=== PATIENT | female | born 1950 | race Caucasian/White ===

== ENCOUNTER 2019-05-05 07:18 | Day surgery (SDC) | payer MEDICAID, MEDICARE ==
[~2019-05-05] VITALS: Ht 154.9 cm; Wt 71.7 kg
[~2019-05-05 07:18] MED LIST: HYDR25TAB PO; METO1TAB32 PO; NS 1,000 ML IV ONE; POTA1TAB23 PO
[2019-05-05] MEDS ORDERED: propofoL 200 MG/20 ML VIAL As Ordered ONE ×2 (07:52→09:04)
[2019-05-05] MEDS ORDERED: LIDOCAINE 2% INJ 100 MG/5 ML SDV (FOR ANES.) As Ordered ONE (08:40)
--- NOTE | 2019-05-05 09:13 | ROOR ---
Patient Name: Elise Peña Procedure Date: 05/05/2019 8:37 AM Date of : 1950 Age: 68 Room: [facility] Gender: Female Note Status: Finalized Procedure: Total Colonoscopy to Cecum + ileoscopy + Bx Indications: Screening for colorectal malignant neoplasm Providers: Steven Robles MD Referring MD: Trish Vazquez NP Requesting Provider: Medicines: Monitored Anesthesia Care Complications: No immediate complications. Procedure: Pre-Anesthesia Assessment: - The heart rate, respiratory rate, oxygen saturations, blood pressure, adequacy of pulmonary ventilation, and response to care were monitored throughout the procedure. The Colonoscope was introduced through the anus and advanced to the cecum, identified by appendiceal orifice and ileocecal valve. The colonoscopy was performed without difficulty. The patient tolerated the procedure well. The quality of the bowel preparation was excellent. Findings: The perianal and digital rectal examinations were normal. Non-bleeding internal hemorrhoids were found during retroflexion. The hemorrhoids were small and Grade I (internal hemorrhoids that do not prolapse). Multiple small and large-mouthed diverticula were found in the recto-sigmoid colon, sigmoid colon and descending colon. A diminutive polyp was found at 30 cm proximal to the anus. The polyp was sessile. The polyp was removed with a cold biopsy forceps. Resection and retrieval were complete. The terminal ileum appeared normal. The exam was otherwise without abnormality on direct and retroflexion views. Impression: - Non-bleeding internal hemorrhoids. - Diverticulosis in the recto-sigmoid colon, in the sigmoid colon and in the descending colon. - One diminutive polyp at 30 cm proximal to the anus, removed with a cold biopsy forceps. Resected and retrieved. - The examined portion of the ileum was normal. - The examination was otherwise normal on direct and retroflexion views. - The exam was otherwise normal to the cecum. Recommendation: - Patient has a contact number available for emergencies. The signs and symptoms of potential delayed complications were discussed with the patient. Return to normal activities tomorrow. Written discharge instructions were provided to the patient. - High fiber diet. - Discharge patient to home. - Continue present medications. - Await pathology results. - Telephone GI clinic for pathology results in 1 week. - Repeat colonoscopy in 10 years for screening purposes. - Return to referring physician. - The findings and recommendations were discussed with the patient's family. Steven Robles MD Steven Robles MD 05/05/2019 9:13:26 AM Electronically signed by Steven Robles MD Number of Addenda: 0 Note Initiated On: 05/05/2019 8:37 AM Estimated Blood Loss: Estimated blood loss: none.
[2019-05-05 09:44] VITALS: BP 160/93
== END 2019-05-05 09:46 | disposition home or self-care (01) ==
LOC: M OPP 07:18
PROVIDERS: ATTEND Internal Medicine Gastroenterology
DX: Z12.11 Encounter for screening for malignant neoplasm of colon (principal); K64.0 First degree hemorrhoids; K63.5 Polyp of colon; K57.30 Diverticulosis of large intestine without perforation or abscess without bleeding; K21.9 Gastro-esophageal reflux disease without esophagitis; Z79.899 Other long term (current) drug therapy; Z88.0 Allergy status to penicillin

== ENCOUNTER → 2021-01-07 | Outpatient (CLI) | payer MEDICARE ==
[~2021-01-07] MED LIST changes: +CALC500T68 PO; +D31000TA2 PO; +HYDR-3490 PO; -HYDR25TAB PO; +ICAPTAB PO; -NS 1,000 ML IV ONE; +POTA1TAB14 PO; +VITMTA PO; +ZINC1TAB2 PO; +colon health PO
== END ==
LOC: M LABSMTC 11:08
PROVIDERS: ATTEND Anesthesiology
DX: Z11.52 Encounter for screening for COVID-19 (principal); Z20.822 Contact with and (suspected) exposure to COVID-19

== ENCOUNTER 2021-01-12 08:29 | Day surgery (SDC) | payer MEDICARE ==
[~2021-01-12] VITALS: Ht 154.9 cm; Wt 72.9 kg
[~2021-01-12 08:29] MED LIST changes: +DUOVISC (0.50ML VISCOAT/0.85ML PROVISC) OPHTH KIT As Ordered ONE; +LIDOCAINE 1% SDV 5ML VIAL As Ordered ONE; +LR 1,000 ML IV SCH; +MAXITROL OPHTH SUSP 5 ML As Ordered ONE; +MIDAZOLAM INJ 2MG/2ML VIAL (J2250 PER 1MG) As Ordered ONE; +UNRESOLVED CLARIFICATION ENTRY XX SCH; +fentaNYL 100 MCG/2 ML INJECTION (J3010) As Ordered ONE
[2021-01-12] MEDS: TETRACAINE 0.5% OPHTH SOLN 4ML OD SCH ×2 (10:49→10:50)
[2021-01-12] MEDS: FLURBIPROFEN 0.03% OPHTH SOLN 2.5 ML OD SCH ×3 (10:51→11:23)
[2021-01-12] MEDS: CYCLOPENTOLATE 1% OPHTH SOLN 2 ML BTL OD SCH ×3 (10:51→11:23)
[2021-01-12] MEDS: PHENYLEPHRINE 2.5% OPHTH SOL 2ML OD SCH ×3 (10:51→11:23)
[2021-01-12 12:50] VITALS: BP 143/79
--- NOTE | 2021-01-12 15:20 | ROOPDOC ---
[facility] Report Of Operation Report of Operation DATE OF PROCEDURE: 01/12/21 PREPROCEDURE DIAGNOSES: Cataract right eye. POSTPROCEDURE DIAGNOSES: Same. PROCEDURE PERFORMED: Cataract extraction with intraocular lens implantation right eye. SURGEON: Aubrey Covington MD CONCRETE BUCKET HOOKER: None ANESTHESIA: Local. ESTIMATED BLOOD LOSS: None. COMPLICATIONS: None. SPECIMENS REMOVED: None DESCRIPTION OF PROCEDURE: The patient was brought to the operating room and prepped and draped in the usual sterile fashion and an eyelid speculum was inserted in the right eye. A paracentesis was made and the anterior chamber was inflated with non-preserved lidocaine. This was followed by injection of Viscoat. A groove was made in the temporal clear cornea which was tunneled forward with the crescent blade and the anterior chamber was entered with a 2.75 keratome. The cystotome was used to make an incision in the center of the capsule and a continuous curvilinear capsulorhexis was created. The lens was hydrodissected until it was found to rotate freely within the capsular bag. Phacoemulsification was then used to remove the lens in its entirety. Irrigation and aspiration were used to remove residual cortical material. The anterior chamber and capsular bag were reinflated with Provisc and a 20.5 diopter SN60AT lens was injected into the capsular bag using the [place] injector. The lens was dialed into place using the [place] hook. Irrigation and aspiration were used to remove residual viscoelastic. The wound was stromally hydrated until was found to be watertight and the eye was in an appropriate pressure. The eyelid speculum was removed from the eye and Maxitrol drops were placed over the right eye. The patient was transferred to the recovery room in stable condition and will follow up tomorrow. The total CDE was 22.89. AUBREY COVINGTON MD Jan 12, 2021 15:20
== END 2021-01-12 12:50 | disposition home or self-care (01) ==
LOC: M SDC 08:29
PROVIDERS: ATTEND Ophthalmology
DX: H25.11 Age-related nuclear cataract, right eye (principal); I10 Essential (primary) hypertension; R42 Dizziness and giddiness; K21.9 Gastro-esophageal reflux disease without esophagitis; M19.90 Unspecified osteoarthritis, unspecified site; R06.83 Snoring; Z88.0 Allergy status to penicillin; Z79.899 Other long term (current) drug therapy
CPT/HCPCS: 66984; J2250; J3010; V2632

== ENCOUNTER → 2021-04-26 | Outpatient (CLI) | payer MEDICARE ==
[~2021-04-26] MED LIST changes: -DUOVISC (0.50ML VISCOAT/0.85ML PROVISC) OPHTH KIT As Ordered ONE; -LIDOCAINE 1% SDV 5ML VIAL As Ordered ONE; -LR 1,000 ML IV SCH; -MAXITROL OPHTH SUSP 5 ML As Ordered ONE; -MIDAZOLAM INJ 2MG/2ML VIAL (J2250 PER 1MG) As Ordered ONE; -UNRESOLVED CLARIFICATION ENTRY XX SCH; +VITA-243 PO; -fentaNYL 100 MCG/2 ML INJECTION (J3010) As Ordered ONE
== END ==
LOC: M LABSMTC 11:32
PROVIDERS: ATTEND Anesthesiology
DX: Z01.812 Encounter for preprocedural laboratory examination (principal); Z11.52 Encounter for screening for COVID-19

== ENCOUNTER 2021-05-01 07:53 | Inpatient (IN) | payer MEDICARE ==
[~2021-05-01] VITALS: Ht 154.9 cm; Wt 76.4 kg
[~2021-05-01 07:53] MED LIST changes: -D31000TA2 PO; +LR 1,000 ML IV ONE; +LR 1,000 ML IV SCH; +VITA100093 PO; +ceFAZolin SOD 2 GM in IV 1 EA IV ONE
[2021-05-01] MEDS ORDERED: dexameTHASONE 4 MG/ML 1ML VIAL (J1100 PER 1MG) As Ordered ONE (07:59)
[2021-05-01] MEDS ORDERED: fentaNYL 100 MCG/2 ML INJECTION As Ordered ONE (07:59)
[2021-05-01] MEDS ORDERED: MIDAZOLAM INJ 2MG/2ML VIAL (J2250 PER 1MG) As Ordered ONE (07:59)
[2021-05-01] MEDS ORDERED: ONDANSETRON 4MG/2ML VIAL As Ordered ONE (07:59)
[2021-05-01] MEDS ORDERED: KETOROLAC 60MG 2ML VIAL As Ordered ONE (07:59)
[2021-05-01] MEDS ORDERED: ROCURONIUM BROMIDE 50 MG/5 ML VIAL As Ordered ONE ×2 (08:00→08:16)
[2021-05-01] MEDS ORDERED: LIDOCAINE 2% 100MG/5ML SDV (FOR ANES.) As Ordered ONE (08:00)
[2021-05-01] MEDS ORDERED: SUGAMMADEX SODIUM 500 MG/5 ML VIAL (BRIDION) As Ordered ONE (08:00)
[2021-05-01] MEDS ORDERED: propofoL 200 MG/20 ML VIAL As Ordered ONE (08:00)
[2021-05-01 08:31] LABS: HEMATOCRIT 35.2 % (36.0-47.0); HEMOGLOBIN 11.4 g/dl (12.0-15.5); MEAN CORPUSCULAR HEMOGLOBIN 27.4 pg (27.0-33.0); MEAN CORPUSCULAR HGB CONC 32.4 g/dl (32.0-36.5); MEAN CORPUSCULAR VOLUME 84.6 fl (80.0-96.0); PLATELET COUNT, AUTOMATED 351 10^3/uL (150-450); RED BLOOD COUNT 4.16 10^6/uL (4.00-5.40); WHITE BLOOD COUNT 12.2 10^3/uL (4.0-10.0)
[2021-05-01] MEDS ORDERED: BUPIVACAINE HCL 0.25% 10ML VIAL As Ordered ONE (09:23)
[2021-05-01] MEDS ORDERED: OXYC1TAB23 PO (09:32)
[2021-05-01] MEDS ORDERED: IBUP-1022 PO (09:33)
[2021-05-01] MEDS ORDERED: ePHEDrine SULFATE 25 MG/5 ML(5MG/ML) SYRINGE As Ordered ONE (10:00)
[2021-05-01] MEDS ORDERED: PHENYLephrine 500MCG 5ML (100MCG/ML) SYRINGE As Ordered ONE (10:00)
[2021-05-01] MEDS ORDERED: ACETAMINOPHEN 1000MG 100ML IV BTL (OFIRMEV) (J0131 PER 10MG) As Ordered ONE (10:06)
[2021-05-01] MEDS ORDERED: KETOROLAC 30 MG/ML 1ML VIAL IV PRN (12:15)
[2021-05-01] MEDS ORDERED: PERCOCET 5MG/325MG TAB PO PRN (12:15)
[2021-05-01] MEDS ORDERED: ONDANSETRON 4MG/2ML VIAL IV PRN (12:15)
[2021-05-01 14:45] VITALS: BP 148/91
[2021-05-01 15:45] VITALS: BP 134/79
[2021-05-01 15:54] LABS: ALBUMIN 3.5 GM/DL (3.2-5.2); ALT/SGPT 24 U/L (12-78); BILIRUBIN,TOTAL 0.3 MG/DL (0.2-1.0); BLOOD UREA NITROGEN 19 MG/DL (7-18); CALCIUM LEVEL 9.1 MG/DL (8.8-10.2); CARBON DIOXIDE LEVEL 26 MEQ/L (21-32); CHLORIDE LEVEL 104 MEQ/L (98-107); GLOMERULAR FILTRATION RATE > 60.0 (>45); GLUCOSE, FASTING 121 MG/DL (70-100); POTASSIUM SERUM 3.2 MEQ/L (3.5-5.1); SODIUM LEVEL 139 MEQ/L (136-145); TOTAL PROTEIN 7.5 GM/DL (6.4-8.2)
[2021-05-01] MEDS ORDERED: ISOVUE-370 76% 100ML VIAL As Ordered ONE (16:05)
[2021-05-01 17:45] VITALS: BP 141/81
[2021-05-01 18:45] VITALS: BP 152/90
[2021-05-01 20:00] VITALS: BP 133/74
[2021-05-01] MEDS: DOCUSATE SODIUM 100MG CAPSULE PO SCH (21:00)
[2021-05-01] MEDS: METOPROLOL SUCC *XL* 25MG TAB (TopROL *XL*) PO SCH (21:14)
[2021-05-02 02:00] VITALS: BP 112/66
[2021-05-02 06:00] VITALS: BP 114/66
[2021-05-02] MEDS ORDERED: POTASSIUM CHLORIDE 10MEQ SR TABLET PO SCH (09:00)
[2021-05-02] MEDS: DOCUSATE SODIUM 100MG CAPSULE PO SCH ×2 (09:13→21:39)
[2021-05-02 14:00] VITALS: BP 134/77
[2021-05-02] MEDS ORDERED: DOCUSATE SODIUM 100MG CAPSULE PO PRN (18:30)
[2021-05-02] MEDS ORDERED: diphenhydrAMINE 25MG CAP PO SCH (21:00)
[2021-05-02 21:39] VITALS: BP 151/92
[2021-05-02] MEDS: METOPROLOL SUCC *XL* 25MG TAB (TopROL *XL*) PO SCH (21:39)
[2021-05-02 22:00] VITALS: BP 151/92
[2021-05-03 06:00] VITALS: BP 116/74
[2021-05-03 06:10] LABS: HEMATOCRIT 30.6 % (36.0-47.0); HEMOGLOBIN 9.9 g/dl (12.0-15.5); MEAN CORPUSCULAR HGB CONC 32.4 g/dl (32.0-36.5); MEAN CORPUSCULAR VOLUME 83.4 fl (80.0-96.0); PLATELET COUNT, AUTOMATED 298 10^3/uL (150-450); RED BLOOD COUNT 3.67 10^6/uL (4.00-5.40)
[2021-05-03 06:41] LABS: ALBUMIN 3.1 GM/DL (3.2-5.2); ALT/SGPT 20 U/L (12-78); BILIRUBIN,TOTAL 0.4 MG/DL (0.2-1.0); BLOOD UREA NITROGEN 15 MG/DL (7-18); CALCIUM LEVEL 8.7 MG/DL (8.8-10.2); CARBON DIOXIDE LEVEL 30 MEQ/L (21-32); CHLORIDE LEVEL 106 MEQ/L (98-107); CREATININE FOR GFR 0.77 MG/DL (0.55-1.30); GLOMERULAR FILTRATION RATE > 60.0 (>45); GLUCOSE, FASTING 93 MG/DL (70-100); POTASSIUM SERUM 3.1 MEQ/L (3.5-5.1); SODIUM LEVEL 141 MEQ/L (136-145); TOTAL PROTEIN 6.5 GM/DL (6.4-8.2)
[2021-05-03] MEDS ORDERED: KCL 20MEQ IN D5/0.45NS 1000ML 1,000 ML IV SCH ×2 (07:30→09:00)
[2021-05-03] MEDS: DOCUSATE SODIUM 100MG CAPSULE PO SCH (07:43)
[2021-05-03] MEDS ORDERED: POTASSIUM CHLORIDE 10MEQ SR TABLET PO SCH (09:00)
[2021-05-03] MEDS ORDERED: LIDOCAINE 2% 100MG/5ML SDV (FOR ANES.) As Ordered ONE (13:09)
[2021-05-03] MEDS ORDERED: propofoL 200 MG/20 ML VIAL As Ordered ONE (13:09)
[2021-05-03 14:00] VITALS: BP 139/85
[2021-05-03 14:59] LABS: HEMATOCRIT 34.4 % (36.0-47.0); MEAN CORPUSCULAR HEMOGLOBIN 27.2 pg (27.0-33.0); MEAN CORPUSCULAR VOLUME 85.1 fl (80.0-96.0); PLATELET COUNT, AUTOMATED 344 10^3/uL (150-450); RED BLOOD COUNT 4.04 10^6/uL (4.00-5.40); WHITE BLOOD COUNT 11.7 10^3/uL (4.0-10.0)
[2021-05-15] MEDS ORDERED: TRAM50TA2 PO (18:23)
== END 2021-05-03 17:33 | disposition home or self-care (01) | DRG 745 ==
LOC: M SDC 07:53 → M MSPAV 14:49 → M SDC 05-02 06:52 → M MSPAV 05-02 06:53
PROVIDERS: ADMIT Specialist; ATTEND Specialist
PROC: 0UBG7ZX Excision of Vagina, Via Natural or Artificial Opening, Diagnostic (ICD-10-PCS; 2021-05-01)
PROC: 0TJB8ZZ Inspection of Bladder, Via Natural or Artificial Opening Endoscopic (ICD-10-PCS; 2021-05-01)
PROC: 0UBC7ZX Excision of Cervix, Via Natural or Artificial Opening, Diagnostic (ICD-10-PCS; principal; 2021-05-01 15:10)
PROC: 0DB78ZX Excision of Stomach, Pylorus, Via Natural or Artificial Opening Endoscopic, Diagnostic (ICD-10-PCS; 2021-05-03)
DX: C79.82 Secondary malignant neoplasm of genital organs (principal); I10 Essential (primary) hypertension; Z88.0 Allergy status to penicillin; Z98.49 Cataract extraction status, unspecified eye; R91.8 Other nonspecific abnormal finding of lung field; Z79.899 Other long term (current) drug therapy; Z20.822 Contact with and (suspected) exposure to COVID-19

== ENCOUNTER → 2021-05-16 | Outpatient (CLI) | payer MEDICARE ==
[~2021-05-16] MED LIST changes: +IBUP-1022 PO; -LR 1,000 ML IV ONE; -LR 1,000 ML IV SCH; +OXYC1TAB23 PO; +TRAM50TA2 PO; -ceFAZolin SOD 2 GM in IV 1 EA IV ONE
== END ==
LOC: M PLARAD 11:53
PROVIDERS: ATTEND Specialist
DX: R91.8 Other nonspecific abnormal finding of lung field (principal); C79.9 Secondary malignant neoplasm of unspecified site; K80.20 Calculus of gallbladder without cholecystitis without obstruction; N85.2 Hypertrophy of uterus
CPT/HCPCS: 78816; A9552

== ENCOUNTER → 2021-05-31 | Outpatient (CLI) | payer MEDICARE ==
[~2021-05-31] MED LIST changes: +LIDOCAINE 1% MDV 20ML VIAL As Ordered ONE; +MIDAZOLAM INJ 2MG/2ML VIAL (J2250 PER 1MG) As Ordered ONE; +NS 1,000 ML IV SCH; +VANCOMYCIN 1000MG/20ML VIAL As Ordered ONE; +VANCOMYCIN HCL 1,000 MG, VIAL MATE ADAPTER 1 EACH in NS 250 ML IV ONE; +diphenhydrAMINE 50MG/ML VIAL (J1200) As Ordered ONE; +fentaNYL 100 MCG/2 ML INJECTION As Ordered ONE
[2021-05-31 16:30] VITALS: BP 113/60
== END ==
LOC: M IRPRO 12:39
PROVIDERS: ATTEND Radiology Diagnostic Radiology
DX: C54.1 Malignant neoplasm of endometrium (principal); Z88.0 Allergy status to penicillin
CPT/HCPCS: 36561; 99152; 99153; C1769; C1788; C1894; J1200; J1642; J1644; J2250; J3010; J3370

== ENCOUNTER → 2021-06-20 | Outpatient (POV) | payer MEDICARE ==
[~2021-06-20] VITALS: Ht 154.9 cm; Wt 67.2 kg
[~2021-06-20] MED LIST changes: -LIDOCAINE 1% MDV 20ML VIAL As Ordered ONE; -MIDAZOLAM INJ 2MG/2ML VIAL (J2250 PER 1MG) As Ordered ONE; -NS 1,000 ML IV SCH; -VANCOMYCIN 1000MG/20ML VIAL As Ordered ONE; -VANCOMYCIN HCL 1,000 MG, VIAL MATE ADAPTER 1 EACH in NS 250 ML IV ONE; -diphenhydrAMINE 50MG/ML VIAL (J1200) As Ordered ONE; -fentaNYL 100 MCG/2 ML INJECTION As Ordered ONE
[2021-06-20 13:35] VITALS: BP 155/87
== END ==
LOC: M IRPOV 13:23
PROVIDERS: ATTEND Radiology Diagnostic Radiology
DX: Z45.2 Encounter for adjustment and management of vascular access device (principal)

== ENCOUNTER → 2021-09-05 | Outpatient (CLI) | payer MEDICARE | LOC: M PLARAD 09:56 | PROVIDERS: ATTEND Obstetrics & Gynecology Gynecologic Oncology | DX: K76.9 Liver disease, unspecified (principal); C54.1 Malignant neoplasm of endometrium; C79.82 Secondary malignant neoplasm of genital organs; C78.01 Secondary malignant neoplasm of right lung; C78.02 Secondary malignant neoplasm of left lung | CPT/HCPCS: 78815; A9552 ==

== ENCOUNTER → 2021-10-05 | Outpatient (CLI) | payer MEDICARE | LOC: M ONCR 10:02 | PROVIDERS: ATTEND General Practice | DX: C54.1 Malignant neoplasm of endometrium (principal); C79.51 Secondary malignant neoplasm of bone; C78.00 Secondary malignant neoplasm of unspecified lung; Z92.21 Personal history of antineoplastic chemotherapy; R10.2 Pelvic and perineal pain; K59.00 Constipation, unspecified; Z86.16 Personal history of COVID-19; Z80.0 Family history of malignant neoplasm of digestive organs; N95.0 Postmenopausal bleeding; Z88.0 Allergy status to penicillin ==

== ENCOUNTER 2021-10-13 14:30 | Outpatient (RCR) | payer MEDICARE | END 2021-10-15 | LOC: M ONCR 14:30 | PROVIDERS: ATTEND General Practice | DX: C55 Malignant neoplasm of uterus, part unspecified (principal) ==

== ENCOUNTER 2021-10-17 14:28 | Outpatient (RCR) | payer MEDICARE ==
[2021-10-18] MEDS ORDERED: IBUP-1022 (14:38)
[2021-10-18] MEDS ORDERED: MIRA3350 PO (14:38)
[2021-10-18] MEDS ORDERED: MELA2.5C4 PO (14:39)
[2021-10-18] MEDS ORDERED: ZOLP5TAB (14:39)
[2021-10-18] MEDS ORDERED: OXYC1TAB23 (14:41)
[2021-10-18] MEDS ORDERED: DRON2.5C11 PO (14:53)
[2021-10-18] MEDS ORDERED: OXYC-517 PO (15:55)
[2021-10-19] MEDS ORDERED: OXYC-517 PO (15:25)
[2021-10-25] MEDS ORDERED: TAMO20TA8 PO (13:41)
[2021-10-25] MEDS ORDERED: OXYC-517 PO (16:08)
[2021-10-26] MEDS ORDERED: OXYC-517 PO (10:01)
[2021-10-30] MEDS ORDERED: OXYC-517 PO (16:34)
[2021-11-07] MEDS ORDERED: OXYC-517 PO (15:48)
[2021-11-09] MEDS ORDERED: OXYC-517 PO ×2 (09:20→17:12)
[2021-11-09] MEDS ORDERED: OXYC-404 PO (15:59)
== END 2021-11-15 ==
LOC: M ONCR 14:28
PROVIDERS: ATTEND General Practice
DX: C55 Malignant neoplasm of uterus, part unspecified (principal)

== ENCOUNTER → 2021-11-21 | Outpatient (CLI) | payer MEDICARE ==
[~2021-11-21] MED LIST changes: +DRON2.5C11 PO; +IBUP-1022; +MELA2.5C4 PO; +MIRA3350 PO; +OXYC-404 PO; +OXYC-517 PO; +OXYC1TAB23; +TAMO20TA8 PO; +ZOLP5TAB
== END ==
LOC: M ONCR 14:22
PROVIDERS: ATTEND General Practice
DX: C41.4 Malignant neoplasm of pelvic bones, sacrum and coccyx (principal); R19.00 Intra-abdominal and pelvic swelling, mass and lump, unspecified site; Z92.3 Personal history of irradiation

== ENCOUNTER 2021-11-28 07:09 | Outpatient (RCR) | payer MEDICARE ==
[2021-11-28] MEDS ORDERED: OXYC-517 PO (14:18)
[2021-11-28] MEDS ORDERED: TAMO20TA8 PO (14:18)
[2021-12-15] MEDS ORDERED: OXYC-517 PO (16:16)
== END 2021-12-15 ==
LOC: M ONCR 07:09
PROVIDERS: ATTEND General Practice
DX: C79.51 Secondary malignant neoplasm of bone (principal)

== ENCOUNTER 2021-12-01 15:43 | Outpatient (RCR) | payer MEDICARE ==
[2021-12-15] MEDS ORDERED: OXYC-517 PO (16:16)
== END 2021-12-15 ==
LOC: M ONCR 15:43
PROVIDERS: ATTEND General Practice
DX: C79.51 Secondary malignant neoplasm of bone (principal)

== ENCOUNTER 2021-12-28 15:49 | Emergency (ER) | payer MEDICARE, OTHER ==
[~2021-12-28] VITALS: Ht 152.4 cm; Wt 53.2 kg
[2021-12-28 16:51] LABS: BASO % 0.2 % (0.0-1.0); EOS % 0.1 % (0.0-3.0); HEMATOCRIT 28.4 % (36.0-47.0); HEMOGLOBIN 8.9 g/dl (12.0-15.5); LYMPH # 0.8 10^3/uL (1.5-5.0); LYMPH % 4.8 % (24.0-44.0); MEAN CORPUSCULAR HEMOGLOBIN 23.9 pg (27.0-33.0); MEAN CORPUSCULAR HGB CONC 31.3 g/dl (32.0-36.5); MEAN CORPUSCULAR VOLUME 76.1 fl (80.0-96.0); NEUTROPHILS # 14.3 10^3/uL (1.5-8.5); NEUTROPHILS % 88.5 % (36.0-66.0); PLATELET COUNT, AUTOMATED 323 10^3/uL (150-450); RED BLOOD COUNT 3.73 10^6/uL (4.00-5.40); WHITE BLOOD COUNT 16.2 10^3/uL (4.0-10.0)
[2021-12-28 17:13] LABS: INR 1.06
[2021-12-28 17:14] LABS: PARTIAL THROMBOPLASTIN TIME 29.5 SECONDS (24.8-34.2)
[2021-12-28] MEDS: NS 1,000 ML IV ONE (17:36)
[2021-12-28] MEDS: ONDANSETRON 4MG 2ML VIAL IV ONE (17:37)
[2021-12-28] MEDS: MORPHINE 4 MG/ML 1ML VIAL/SYRINGE IV ONE ×2 (17:37→20:00)
[2021-12-28 17:46] LABS: ALBUMIN 3.2 GM/DL (3.2-5.2); ALT/SGPT 45 U/L (12-78); BILIRUBIN,DIRECT 0.2 MG/DL (0.0-0.2); BILIRUBIN,TOTAL 0.4 MG/DL (0.2-1.0); BLOOD UREA NITROGEN 14 MG/DL (7-18); CALCIUM LEVEL 9.2 MG/DL (8.8-10.2); CARBON DIOXIDE LEVEL 28 MEQ/L (21-32); CHLORIDE LEVEL 98 MEQ/L (98-107); CREATININE FOR GFR 0.55 MG/DL (0.55-1.30); GLOMERULAR FILTRATION RATE > 60.0 (>45); GLUCOSE, FASTING 125 MG/DL (70-100); LIPASE 61 U/L (73-393); POTASSIUM SERUM 3.2 MEQ/L (3.5-5.1); SODIUM LEVEL 132 MEQ/L (136-145); TOTAL PROTEIN 7.2 GM/DL (6.4-8.2)
[2021-12-28] MEDS ORDERED: ISOVUE-370 76% 100ML VIAL As Ordered ONE (18:20)
[2021-12-28] MEDS ORDERED: oxyCODONE 20 MG CR TAB PO ONE (21:45)
[2021-12-28] MEDS ORDERED: OXYC-404 PO (21:59)
[2021-12-28] MEDS ORDERED: ONDA4TAB6 PO (21:59)
[2021-12-28] MEDS: oxyCODONE 10 MG CR TAB PO ONE (23:23)
[2021-12-28] MEDS: oxyCODONE 5MG TAB PO ONE (23:24)
[2021-12-28 23:37] VITALS: BP 162/82
== END 2021-12-28 23:48 | disposition home or self-care (01) ==
LOC: M ED 15:49
DX: R11.2 Nausea with vomiting, unspecified (principal); M75.41 Impingement syndrome of right shoulder; C54.1 Malignant neoplasm of endometrium; C78.01 Secondary malignant neoplasm of right lung; C78.02 Secondary malignant neoplasm of left lung; R91.8 Other nonspecific abnormal finding of lung field; R93.2 Abnormal findings on diagnostic imaging of liver and biliary tract; R93.5 Abnormal findings on diagnostic imaging of other abdominal regions, including retroperitoneum; R93.7 Abnormal findings on diagnostic imaging of other parts of musculoskeletal system; N28.1 Cyst of kidney, acquired; I10 Essential (primary) hypertension; K57.30 Diverticulosis of large intestine without perforation or abscess without bleeding; K80.20 Calculus of gallbladder without cholecystitis without obstruction; Z88.0 Allergy status to penicillin; Z92.21 Personal history of antineoplastic chemotherapy
CPT/HCPCS: 71046; 73030; 74177; 80048; 80076; 83605; 83690; 85025; 85610; 85730; 87040; 93005; 93041; 96361; 96374; 96376; 99285; J2270; J2405; Q9967